=== PATIENT | female | born 1955 | race Caucasian/White ===

== ENCOUNTER 2018-07-04 17:36 | Inpatient (IN) | payer MEDICAID ==
[2018-07-04 22:00] LABS: ADD MAN DIFF? NO
[2018-07-04] MEDS ORDERED: NITROGLYCERIN (SL) 0.4 MG TAB SL (22:00)
[2018-07-04 22:05] LABS: BASOPHIL # 0.1 10^3/ul (0.0-0.1); EOSINOPHILS # 0.3 10^3/ul (0.0-0.5); EOSINOPHILS % 4.2 % (0.0-7.0); HEMATOCRIT 40.5 % (37.0-47.0); HEMOGLOBIN 12.8 g/dl (12.0-16.0); LYMPHOCYTES # 3.1 10^3/ul (0.8-2.9); LYMPHOCYTES % 42.3 % (15.0-51.0); MEAN CORPUSCULAR HEMOGLOBIN 26.7 pg (29.0-33.0); MEAN CORPUSCULAR HGB CONC 31.6 g/dl (32.0-37.0); MEAN CORPUSCULAR VOLUME 84.6 fl (82.0-101.0); MEAN PLATELET VOLUME 9.7 fl (7.4-10.4); MONOCYTE # 0.5 10^3/ul (0.3-0.9); NEUTROPHIL # 3.3 10^3/ul (1.6-7.5); NEUTROPHILS % 45.2 % (39.0-77.0); PLATELET COUNT 319 10^3/UL (140-415); RED BLOOD COUNT 4.79 10^6/ul (4.20-5.40); RED CELL DISTRIBUTION WIDTH 16.2 % (11.5-14.5)
[2018-07-04 22:05] LABS: WHITE BLOOD COUNT 7.3 10^3/ul (4.8-10.8)
[2018-07-04] MEDS: NITROGLYCERIN 2% 1 GM OINT PKT TD (22:07)
[2018-07-04] MEDS: morphine 4 MG/ML VIAL IV (22:08)
[2018-07-04] MEDS: ONDANSETRON 4 MG INJ IV (22:08)
[2018-07-04] MEDS: ASPIRIN 81 MG TAB PO (22:08)
[2018-07-04 22:26] LABS: ANION GAP 20 (8-16); BLOOD UREA NITROGEN 38 mg/dl (7-20); CALCIUM 10.1 mg/dl (8.4-10.2); CARBON DIOXIDE 21 mmol/L (21-31); CHLORIDE 106 mmol/L (97-110); CREATININE 1.79 mg/dl (0.44-1.00); GLUCOSE 247 mg/dl (70-220); POTASSIUM 5.5 mmol/L (3.5-5.1); SODIUM 141 mmol/L (135-144)
[2018-07-04 22:38] LABS: TROPONIN-I < 0.010 ng/ml (0.000-0.120)
[2018-07-04] MEDS ORDERED: ONDANSETRON 4 MG INJ IV (23:00)
[2018-07-04] MEDS ORDERED: ACETAMINOPHEN 325 MG TAB PO (23:00)
[2018-07-04] MEDS: NA BICARBONATE 8.4% 50 ML SYG IV (23:12)
[2018-07-05] MEDS ORDERED: ALBUTEROL/IPRATROPIUM (NEB) 3 ML AMP HHN (03:30)
[2018-07-05] MEDS ORDERED: ACETAMINOPHEN 325 MG TAB PO (03:30)
[2018-07-05] MEDS ORDERED: ONDANSETRON 4 MG INJ IV (03:30)
[2018-07-05] MEDS ORDERED: NITROGLYCERIN (SL) 0.4 MG TAB SL (03:30)
[2018-07-05] MEDS ORDERED: NACL 0.9% 3 ML SYG IV (03:30)
[2018-07-05] MEDS: FUROSEMIDE 20 MG TAB PO ×2 (05:41→17:20)
[2018-07-05 06:09] LABS: ADD MAN DIFF? NO
[2018-07-05 06:14] LABS: WHITE BLOOD COUNT 5.6 10^3/ul (4.8-10.8)
[2018-07-05 06:14] LABS: BASOPHILS % 0.7 % (0.0-2.0); EOSINOPHILS # 0.3 10^3/ul (0.0-0.5); HEMATOCRIT 36.3 % (37.0-47.0); HEMOGLOBIN 11.6 g/dl (12.0-16.0); LYMPHOCYTES # 2.1 10^3/ul (0.8-2.9); LYMPHOCYTES % 38.6 % (15.0-51.0); MEAN CORPUSCULAR VOLUME 84.4 fl (82.0-101.0); MONOCYTE # 0.5 10^3/ul (0.3-0.9); MONOCYTES % 8.1 % (0.0-11.0); NEUTROPHIL # 2.6 10^3/ul (1.6-7.5); NEUTROPHILS % 47.4 % (39.0-77.0); PLATELET COUNT 273 10^3/UL (140-415); RED CELL DISTRIBUTION WIDTH 16.5 % (11.5-14.5)
[2018-07-05 06:44] LABS: ALANINE AMINOTRANSFERASE 24 IU/L (13-69); ALBUMIN/GLOBULIN RATIO 1.14; ALKALINE PHOSPHATASE 59 IU/L (42-121); ANION GAP 14 (8-16); ASPARTATE AMINO TRANSFERASE 21 IU/L (15-46); BILIRUBIN,INDIRECT 0.4 mg/dl (0-1.1); BILIRUBIN,TOTAL 0.4 mg/dl (0.2-1.3); BLOOD UREA NITROGEN 33 mg/dl (7-20); CALCIUM 9.7 mg/dl (8.4-10.2); CARBON DIOXIDE 27 mmol/L (21-31); CHLORIDE 105 mmol/L (97-110); CHOL/HDL RATIO 5.1 RATIO; CHOLESTEROL 211 mg/dl (100-200); CREATININE 1.49 mg/dl (0.44-1.00); GLUCOSE 232 mg/dl (70-220); HDL CHOLESTEROL 41 mg/dl (35-98); LDL CHOLESTEROL,CALCULATED 121 mg/dl; POTASSIUM 5.4 mmol/L (3.5-5.1); SODIUM 141 mmol/L (135-144); TOTAL PROTEIN 7.5 g/dl (6.1-8.1); TRIGLYCERIDES 245 mg/dl (0-149)
[2018-07-05 06:46] LABS: CREATINE KINASE 75 IU/L (23-200)
[2018-07-05 06:47] LABS: CK INDEX 0.7; CK-MB 0.54 ng/ml (0.0-2.4); TROPONIN-I < 0.010 ng/ml (0.000-0.120)
[2018-07-05] MEDS ORDERED: INSULIN REGULAR 10 ML INJ SC (07:30)
[2018-07-05] MEDS: IBUPROFEN 200 MG TAB PO ×3 (07:59→17:20)
[2018-07-05] MEDS: INSULIN ASPART [NOVOLOG] 3 ML PEN SC ×7 (08:03→20:49)
[2018-07-05] MEDS: NIFEdipine (XL) 60 MG TAB PO (09:09)
[2018-07-05] MEDS: ASPIRIN 81 MG TAB PO (09:09)
[2018-07-05] MEDS: CHLORTHALIDONE 25 MG TAB PO (09:09)
[2018-07-05] MEDS: AMLODIPINE 10 MG TAB PO (09:09)
[2018-07-05] MEDS: NA POLYST SULFON 15 GM/60 ML BTL PO ×2 (09:10→09:17)
[2018-07-05] MEDS: HEPARIN 5,000 UNIT/0.5 ML VIAL SC ×2 (09:14→20:49)
[2018-07-05] MEDS: INSULIN GLARGINE [LANTus] (100 UNITS/ML) SYG SC ×2 (09:15→18:37)
[2018-07-05 09:35] LABS: CREATINE KINASE 77 IU/L (23-200)
[2018-07-05 09:45] LABS: CK INDEX 0.6; CK-MB 0.47 ng/ml (0.0-2.4); TROPONIN-I < 0.010 ng/ml (0.000-0.120)
[2018-07-05] MEDS: ATORVASTATIN 20 MG TAB PO (20:39)
[2018-07-06] MEDS: IBUPROFEN 200 MG TAB PO ×3 (01:32→11:44)
[2018-07-06] MEDS: ACCU-CHEK XX ×2 (01:38→01:39)
[2018-07-06] MEDS: FUROSEMIDE 20 MG TAB PO (05:30)
[2018-07-06] MEDS: INSULIN ASPART [NOVOLOG] 3 ML PEN SC ×7 (08:01→20:39)
[2018-07-06 08:05] LABS: ADD MAN DIFF? NO
[2018-07-06] MEDS: AMLODIPINE 10 MG TAB PO (08:09)
[2018-07-06] MEDS: NIFEdipine (XL) 60 MG TAB PO (08:09)
[2018-07-06] MEDS: ASPIRIN 81 MG TAB PO (08:09)
[2018-07-06 08:10] LABS: BASOPHIL # 0.1 10^3/ul (0.0-0.1); BASOPHILS % 0.9 % (0.0-2.0); EOSINOPHILS # 0.3 10^3/ul (0.0-0.5); EOSINOPHILS % 4.6 % (0.0-7.0); HEMATOCRIT 38.2 % (37.0-47.0); LYMPHOCYTES # 2.4 10^3/ul (0.8-2.9); LYMPHOCYTES % 40.4 % (15.0-51.0); MEAN CORPUSCULAR HEMOGLOBIN 26.5 pg (29.0-33.0); MEAN CORPUSCULAR HGB CONC 31.4 g/dl (32.0-37.0); MEAN CORPUSCULAR VOLUME 84.5 fl (82.0-101.0); MONOCYTE # 0.5 10^3/ul (0.3-0.9); MONOCYTES % 7.7 % (0.0-11.0); NEUTROPHIL # 2.7 10^3/ul (1.6-7.5); NEUTROPHILS % 46.2 % (39.0-77.0); PLATELET COUNT 290 10^3/UL (140-415); RED BLOOD COUNT 4.52 10^6/ul (4.20-5.40)
[2018-07-06 08:10] LABS: WHITE BLOOD COUNT 5.9 10^3/ul (4.8-10.8)
[2018-07-06] MEDS: HEPARIN 5,000 UNIT/0.5 ML VIAL SC ×2 (08:22→20:39)
[2018-07-06] MEDS: INSULIN GLARGINE [LANTus] (100 UNITS/ML) SYG SC (08:22)
[2018-07-06 08:29] LABS: ANION GAP 17 (8-16); BLOOD UREA NITROGEN 35 mg/dl (7-20); CALCIUM 9.9 mg/dl (8.4-10.2); CARBON DIOXIDE 27 mmol/L (21-31); CHLORIDE 98 mmol/L (97-110); CREATININE 1.74 mg/dl (0.44-1.00); GLUCOSE 281 mg/dl (70-220); MAGNESIUM 1.7 mg/dl (1.7-2.5); PHOSPHORUS 4.7 mg/dl (2.5-4.9); POTASSIUM 4.9 mmol/L (3.5-5.1); SODIUM 137 mmol/L (135-144)
[2018-07-06] MEDS: SOD CHLORIDE 0.9% 500 ML IV (17:54)
[2018-07-06] MEDS: ATORVASTATIN 20 MG TAB PO (20:33)
[2018-07-07] MEDS: ACCU-CHEK XX ×2 (02:00)
[2018-07-07 06:40] LABS: ADD MAN DIFF? NO
[2018-07-07 06:48] LABS: WHITE BLOOD COUNT 6.4 10^3/ul (4.8-10.8)
[2018-07-07 06:48] LABS: BASOPHIL # 0.1 10^3/ul (0.0-0.1); BASOPHILS % 0.9 % (0.0-2.0); EOSINOPHILS # 0.2 10^3/ul (0.0-0.5); EOSINOPHILS % 3.7 % (0.0-7.0); HEMATOCRIT 39.4 % (37.0-47.0); HEMOGLOBIN 12.6 g/dl (12.0-16.0); LYMPHOCYTES # 2.5 10^3/ul (0.8-2.9); LYMPHOCYTES % 38.3 % (15.0-51.0); MEAN CORPUSCULAR HEMOGLOBIN 26.5 pg (29.0-33.0); MEAN CORPUSCULAR VOLUME 82.9 fl (82.0-101.0); MEAN PLATELET VOLUME 10.2 fl (7.4-10.4); MONOCYTE # 0.3 10^3/ul (0.3-0.9); MONOCYTES % 5.3 % (0.0-11.0); NEUTROPHIL # 3.3 10^3/ul (1.6-7.5); NEUTROPHILS % 51.6 % (39.0-77.0); PLATELET COUNT 314 10^3/UL (140-415); RED BLOOD COUNT 4.75 10^6/ul (4.20-5.40); RED CELL DISTRIBUTION WIDTH 15.6 % (11.5-14.5)
[2018-07-07 07:11] LABS: ANION GAP 17 (8-16); BLOOD UREA NITROGEN 35 mg/dl (7-20); CALCIUM 10.1 mg/dl (8.4-10.2); CARBON DIOXIDE 28 mmol/L (21-31); CHLORIDE 98 mmol/L (97-110); GLUCOSE 236 mg/dl (70-220); SODIUM 138 mmol/L (135-144)
[2018-07-07] MEDS: INSULIN ASPART [NOVOLOG] 3 ML PEN SC ×4 (07:58→11:51)
[2018-07-07] MEDS: INSULIN GLARGINE [LANTus] (100 UNITS/ML) SYG SC (08:04)
[2018-07-07] MEDS ORDERED: FUROSEMIDE 20 MG TAB PO (09:00)
[2018-07-07] MEDS: ASPIRIN 81 MG TAB PO (10:02)
[2018-07-07] MEDS: NIFEdipine (XL) 60 MG TAB PO (10:02)
[2018-07-07] MEDS: HEPARIN 5,000 UNIT/0.5 ML VIAL SC (10:03)
[2018-07-07] MEDS: LACTULOSE 30ML CUP PO (12:57)
[2018-07-07] MEDS: DOCUSATE SODIUM 100 MG CAP PO (12:58)
[2018-07-08] MEDS ORDERED: CHLORTHALIDONE 25 MG TAB PO (09:00)
== END 2018-07-07 14:04 | disposition home or self-care (01) | DRG 684 ==
LOC: TEL 22:58 → E/R 17:36
DX: N17.9 Acute kidney failure, unspecified (principal); R07.89 Other chest pain; E11.65 Type 2 diabetes mellitus with hyperglycemia; E88.81 Metabolic syndrome and other insulin resistance; I11.9 Hypertensive heart disease without heart failure; E78.5 Hyperlipidemia, unspecified; E66.9 Obesity, unspecified; D64.9 Anemia, unspecified; T50.2X5A Adverse effect of carbonic-anhydrase inhibitors, benzothiadiazides and other diuretics, initial encounter; T39.395A Adverse effect of other nonsteroidal anti-inflammatory drugs [NSAID], initial encounter; Y92.89 Other specified places as the place of occurrence of the external cause; Z68.37 Body mass index [BMI] 37.0-37.9, adult; Z79.4 Long term (current) use of insulin; Z79.82 Long term (current) use of aspirin
CPT/HCPCS: 36415; 71045; 80048; 80053; 80061; 82550; 82553; 82962; 83036; 83735; 84100; 84443; 84484; 85025; 93005; 93306; 96374; 96375; 99285-25; G0378